=== PATIENT | male | born 1945 | race Caucasian/White ===

== ENCOUNTER 2017-06-03 13:22 | Emergency (ER) | payer OTHER ==
[~2017-06-03 13:22] MED LIST: COUMADIN5 MG PO; LOPRESSOR50 MG PO; NORCO1 TA2 PO
[2017-06-03 13:28] VITALS: BP 104/62
== END 2017-06-03 15:38 | disposition home or self-care (01) ==
LOC: ED 13:22
DX: H61.22 Impacted cerumen, left ear (principal)

== ENCOUNTER 2017-10-23 17:16 | Emergency (ER) | payer OTHER ==
[~2017-10-23] VITALS: Ht 182.9 cm; Wt 79.4 kg
[2017-10-23 17:47] VITALS: BP 128/77; Ht 182.9 cm; Wt 79.4 kg
== END 2017-10-23 20:56 | disposition left against medical advice (07) ==
LOC: ED 17:16
DX: Z53.21 Procedure and treatment not carried out due to patient leaving prior to being seen by health care provider (principal)